=== PATIENT | male | born 1960 | race Caucasian/White ===

== ENCOUNTER 2025-01-26 21:21 | Emergency (ER) | payer OTHER ==
--- NOTE | 2025-01-26 22:00 | ED ---
Upper Extremity HPI - General Chief Complaint: Extremity Injury, Upper Stated Complaint: Injured wrists Time Seen by Provider: 01/26/25 21:40 Source: patient, RN notes reviewed Mode of arrival: ambulatory Limitations: no limitations - History of Present Illness Initial Comments: This is a 64-year-old male presenting for bilateral wrist pain/injury (05/11) occurring about 90 minutes prior to ER arrival. Patient states [place] when he suffered a fall landing onto his bilateral hands as he attempted to catch himself. Patient states he is unsure if he fell forwards or backwards. Denies striking head, loss consciousness, headache, neck pain, other significant injury. Patient notes significant swelling to his right wrist but also noting some pain in his left wrist as well. Denies sred-lul-doyiysi medication use prior to ER arrival. MD Complaint: Injury to:: left, right, forearm, wrist Onset/Timin -: minutes(s) Time: 20:00 Other Extremity Injury: Wrist: Right, Left, Arm: Right Place: outdoors Severity scale (1-10): 10 Improves With: immobilization, rest Worsens With: movement of extremity Context: fall Associated Symptoms: denies other symptoms - Related Data Previous Rx's Medication Instructions Recorded Ibuprofen [Motrin] 600 mg PO Q8HR PRN #30 tab 01/27/25 Allergies Allergy/AdvReac Type Severity Reaction Status Date / Time No Known Allergies Allergy Verified 01/26/25 21:42 Review of Systems ROS Statement: Those systems with pertinent positive or pertinent negative responses have been documented in the HPI. ROS Other: All systems not noted in ROS Statement are negative. Past Medical History Past Medical History: No Reported History History of Any Multi-Drug Resistant Organisms: None Reported Past Surgical History: Hernia Repair Smoking Status: Current every day smoker Past Alcohol Use History: None Reported Past Drug Use History: None Reported General Exam General appearance: alert, in no apparent distress Head exam: Present: atraumatic, normocephalic, normal inspection Eye exam: Present: normal appearance, PERRL, EOMI. Absent: scleral icterus, conjunctival injection, periorbital swelling ENT exam: Present: normal exam, mucous membranes moist Neck exam: Present: normal inspection. Absent: tenderness, meningismus, lymphadenopathy Respiratory exam: Present: normal lung sounds bilaterally. Absent: respiratory distress, wheezes, rales, rhonchi, stridor Cardiovascular Exam: Present: regular rate, normal rhythm, normal heart sounds. Absent: systolic murmur, diastolic murmur, rubs, gallop, clicks GI/Abdominal exam: Present: soft, normal bowel sounds. Absent: distended, tenderness, guarding, rebound, rigid Extremities exam: Present: normal inspection, full ROM, tenderness (Positive right radial wrist/anatomical snuffbox exquisite TTP with overlying moderate edema. Tenderness along entirety of right radius also noted. Left ulnar wrist pain without obvious crepitus, deformity, edema. Negative left proximal ulnar TTP), normal capillary refill, other (Left hand distal neurovascular motor function intact. Radial pulse +2, capillary refill less than 2 seconds. Right distal neurological vascular intact, capillary refill less than 2 seconds. Radial pulse +1. Patient unable to move fingers due to associated pain.). Absent: pedal edema, joint swelling, calf tenderness Back exam: Present: normal inspection Neurological exam: Present: alert, oriented X3, CN II-XII intact Psychiatric exam: Present: normal affect, normal mood Skin exam: Present: warm, dry, intact, normal color. Absent: rash Course Vital Signs 01/26/25 01/27/25 21:39 00:32 Temperature 98.7 F 98.5 F Pulse Rate 83 72 Respiratory 18 16 Rate Blood Pressure 107/76 144/81 O2 Sat by Pulse 98 96 Oximetry Procedures - Orthopedic Splinting/Casting Injury #1 Side: right Upper Extremity Injury Location: wrist Upper Extremity Immobilizer: sling/shoulder immobilizer, sugar tong splint Medical Decision Making - Medical Decision Making Was pt. sent in by a medical professional or institution (, PA, GAUGE CONTROLLER, urgent care, hospital, or group home...) When possible be specific @ -No Did you speak to anyone other than the patient for history (EMS, parent, family, police, friend...)? What history was obtained from this source @ -No Did you review nursing and triage notes (agree or disagree)? Why? @ -I reviewed and agree with nursing and triage notes Were old charts reviewed (outside hosp., previous admission, EMS record, old EKG, old radiological studies, urgent care reports/EKG's, group home records)? Report findings @ -No old charts were reviewed Differential Diagnosis (chest pain, altered mental status, abdominal pain women, abdominal pain men, vaginal bleeding, weakness, fever, dyspnea, syncope, headache, dizziness, GI bleed, back pain, seizure, CVA, palpatations, mental health, musculoskeletal)? @ -Differential Musculoskeletal Muscular strain, contusion, ligament sprain, fracture, arthritis, septic arthri tis, bursitis, cellulitis, muscle spasm, nerve compression, DVT, arterial occlusion, herpes zoster, electrolyte abnormality, tumor.... This is not meant to be in all inclusive list EKG interpreted by me (3pts min.). @ -Not done X-rays interpreted by me (1pt min.). @ -Bilateral wrist and right arm x-ray shows minimally impacted fracture of the distal right radius and nondisplaced fracture of the ulnar styloid. No acute fracture of left wrist joint noted. CT interpreted by me (1pt min.). @ -None done U/S interpreted by me (1pt. min.). @ -None done What testing was considered but not performed or refused? (CT, X-rays, U/S, labs)? Why? @ -None What meds were considered but not given or refused? Why? @ -None Did you discuss the management of the patient with other professionals (professionals i.e. , PA, GAUGE CONTROLLER, lab, RT, psych nurse, social problems specialist, teamcenter consultant, teacher, nuclear officer, rn case manager hospice)? Give summary @ -No Was smoking cessation discussed for >3mins.? @ -No Was critical care preformed (if so, how long)? @ -No Were there social determinants of health that impacted care today? How? (Homelessness, low income, unemployed, alcoholism, drug addiction, transportatio n, low edu. Level, literacy, decrease access to med. care, [place] [facility], rehab)? @ -No Was there de-escalation of care discussed even if they declined (Discuss DNR or withdrawal of care, Hospice)? DNR status @ -No What co-morbidities impacted this encounter? (DM, HTN, Smoking, COPD, CAD, Cancer, CVA, ARF, Chemo, Hep., AIDS, mental health diagnosis, sleep apnea, morbid obesity)? @ -None Was patient admitted / discharged? Hospital course, mention meds given and route, prescriptions, significant lab abnormalities, going to OR and other pertinent info. @ -Patient initially provided IM Dilaudid, Toradol and p.o. Tylenol for pain. X-ray positive for right wrist fracture. Sugar-tong splint applied along with sling. Patient provided additional IM Dilaudid and Toradol for ongoing pain and discharged with 2/3 starter pack. Motrin 600 sent to patient's pharmacy. Advised RICE and alternate Tylenol/Motrin every 4 hours for pain. Follow-up with orthopedics regarding fracture for ongoing management. Discussed patient with Dr. Aggarwal. Undiagnosed new problem with uncertain prognosis? @ -No Drug Therapy requiring intensive monitoring for toxicity (Heparin, Nitro, Insulin, Cardizem)? @ -No Were any procedures done? @ -Sugar-tong splint applied to right wrist/upper extremity along with sling. See procedure note Diagnosis/symptom? @ -Wrist sprain Acute, or Chronic, or Acute on Chronic? @ -Acute Uncomplicated (without systemic symptoms) or Complicated (systemic symptoms)? @ -Uncomplicated Side effects of treatment? @ -No Exacerbation, Progression, or Severe Exacerbation? @ -No Poses a threat to life or bodily function? How? (Chest pain, [place], [place], pneumonia, PE, COPD, DKA, ARF, appy, cholecystitis, CVA, Diverticulitis, Homicidal, Suicidal, threat to staff... and all critical care pts) @ -No Disposition Clinical Impression: Closed fracture of right wrist Disposition: HOME SELF-CARE Condition: Fair Instructions (If sedation given, give patient instructions): Wrist Injury (ED) Additional Instructions: Alternate Tylenol/Motrin every 4 hours for pain. Follow-up with orthopedics for ongoing management and evaluation of wrist injury. Prescriptions: Ibuprofen [Motrin] 600 mg PO Q8HR PRN #30 tab PRN Reason: Pain Is patient prescribed a controlled substance at d/c from ED?: No Referrals: Roshan Flynn DO [Primary Care Provider] - 1-2 days [facility] [Provider Group] - 1-2 days [facility] [Provider Group] - 1-2 days Time of Disposition: 00:17
[2025-01-26] MEDS: ACETAMINOPHEN TAB 325 MG TAB PO STA (22:10)
[2025-01-26] MEDS: HYDROmorphone 1 MG/ML 1 ML SYRINGE IM STA (22:11)
[2025-01-26] MEDS: KETOROLAC 15 MG/ML 1 ML VIAL IM STA (22:12)
[2025-01-27] MEDS: KETOROLAC 15 MG/ML 1 ML VIAL IM STA (00:24)
[2025-01-27] MEDS: ACET/COD 300 MG/30 MG STARTER PACK 6 TAB BTL PO STA (00:24)
[2025-01-27] MEDS: HYDROmorphone 1 MG/ML 1 ML SYRINGE IM STA (00:25)
--- NOTE | 2025-01-27 00:33 | XR ---
EXAM: XR Right Forearm, 2 Views CLINICAL HISTORY: ITS.REASON XR Reason: FOOSH, bilateral wrist pain, right wrist deformity TECHNIQUE: Frontal and lateral views of the right forearm. COMPARISON: No previous studies. FINDINGS: Bones/joints: Acute transverse minimally impacted fracture of the distal right radius is noted. Fracture of the base of the ulnar styloid. Right elbow joint is unremarkable. No dislocation. Soft tissues: Soft tissue swelling about the right wrist joint. IMPRESSION: 1. Acute minimally impacted fracture of the distal right radius. 2. Fracture of the ulnar styloid. 3. Soft tissue swelling about the right wrist joint.
--- NOTE | 2025-01-27 00:37 | XR ---
EXAM: XR Bilateral Wrists Complete, 3 or More Views CLINICAL HISTORY: ITS.REASON XR Reason: FOOSH, bilateral wrist pain, right wrist deformity TECHNIQUE: Frontal, lateral and oblique views of the bilateral wrists. COMPARISON: No previous studies. FINDINGS: Bones/joints: There is a transverse minimally impacted fracture of the distal right radius. Fracture of the ulnar styloid which is nondisplaced. Mild osteoarthritic changes. Normal alignment about the left wrist joint. No acute fracture or dislocation. Soft tissues: Soft tissue swelling about the right wrist joint. Soft tissues are unremarkable. No radiopaque foreign body. IMPRESSION: 1. Acute minimally impacted fracture of the distal right radius. 2. Acute fracture of the ulnar styloid. 3. No acute fracture about the left wrist joint.
[2025-01-27 00:38] VITALS: BP 144/81; PULSE 72; RESP 16; TEMP 98.5
== END 2025-01-27 00:38 | disposition home or self-care (01) ==
LOC: EC 21:21
DX: S52.501A Unspecified fracture of the lower end of right radius, initial encounter for closed fracture (principal); F17.200 Nicotine dependence, unspecified, uncomplicated; W01.0XXA Fall on same level from slipping, tripping and stumbling without subsequent striking against object, initial encounter
CPT/HCPCS: 73110; 73090; 99283; 29125; 96372 ×2; J1171 ×2; J1885 ×2